=== PATIENT | male | born 1990 | race Caucasian/White ===

== ENCOUNTER 2025-01-19 14:17 | Emergency (ER) | payer SELFPAY ==
[~2025-01-19] VITALS: Ht 170.2 cm; Wt 82.2 kg
[2025-01-19 14:25] VITALS: TEMP 97.6
--- NOTE | 2025-01-19 15:05 | Physician Documentation ---
History of Present Illness ~ Chief Complaint: Abscess Stated Complaint: ARM INFECTION Time Seen by MD: 14:46 OK to notify your PCP?: No Primary Medical Doctor: Dr Ramos [facility] 34-year-old male presents to the ED with a complaint of he abscess that is grown in his left forearm. 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 States since then he has developed pain and inflammation on the anterior aspect of his left forearm. Denies any nausea fever Day of Onset: January 19, 2025 Tetanus Within 5 Years: No Medication Reconciliation Allergies: Coded Allergies: No Known Allergies (Unverified , 01/19/25) Scheduled Cephalexin*Monohydrate* (Keflex*), 1 CAP PO QID Review of Systems All Other Systems at this time: Reviewed and Negative ROS As stated above in the HPI, otherwise all systems are reviewed and negative. Physical Exam Vital Signs: Temperature: 97.6, Source: Temporal, Heart Rate: 56, Respiratory Rate: 18, BP: 131/73, Pulse Oximetry: 98, Weight: 82.250 Physical Exam General: Alert, no apparent distress. Extremities: Normal range of motion, no deformity. 3-4 cm erythema in the anterior of the left forearm with a centralized purulent head Neurologic: Oriented x4. Psychiatric: Normal mood and affect. Skin: Normal color, warm and dry. No edema, no ecchymosis. Procedures I & D Procedure : Anesthesia: none Incision: blood drained Tolerated Procedure Well?: yes, no complications Procedure Note Amount of purulent discharge was drained from the forearm abscess with a 18 gauge needle Progress Results/Orders Results/Orders Vital Signs 01/19/25 01/19/25 14:25 15:40 Temp 97.6 Pulse 56 58 Resp 18 15 B/P (MAP) 131/73 119/74 Pulse Ox 98 98 Medical Decision Making Findings Seeing patient on antibiotics for a forearm abscess. I suspect he has a small particle if something embedded in his skin from his job description as a [employer]. Able to drain some purulent discharge from the abscess however I do not find any foreign bodies. Going to discharge him on Keflex and have him follow up if he has any worsening symptom Differential Dx:Considerations: Include: Abscess, Bacteremia, Cellulitis, Erysipelas, Felon, Gas gangrene, Hidrademitis suppurativa, Impetigo, Lymphangitis, Osteromyelitis, Paronychia, Septicemia, Other Departure Disposition: HOME / SELF CARE / HOMELESS Impression: Primary Impression: Abscess Condition: Stable Discharge Instructions: Abscess, Care After Referrals: NO PRIMARY CARE PROVIDER (PCP) Prescriptions Cephalexin*Monohydrate* (Keflex*) 500 Mg Capsule 1 CAP PO QID, #40 CAP Prov: ALEXANDRO MONAHAN [employer] 01/19/25 Education Educated: Patient Educated regarding: diagnosis Signature Scribe Signature: h Attestation: The note accurately reflects work and decisions made by me.Alexandro Monahan - MEL 01/19/25 18:18 ALEXANDRO MONAHAN NP January 19, 2025 15:05
[2025-01-19] MEDS ORDERED: CEPH-585 PO (15:25)
[2025-01-19 15:40] VITALS: BP 119/74; PULSE 58; RESP 15; O2SAT 98
== END 2025-01-19 15:39 | disposition home or self-care (01) ==
LOC: ER 14:17
DX: L02.512 Cutaneous abscess of left hand (principal)
CPT/HCPCS: 10060; 99283